=== PATIENT | male | born 1935 | race Caucasian/White ===

== ENCOUNTER 2018-11-30 08:13 | Day surgery (SDC) | payer MEDICARE ==
[~2018-11-30] VITALS: Ht 170.2 cm; Wt 108.0 kg
[~2018-11-30 08:13] MED LIST: AMLO5 PO; ASPI81CH PO; BENADRYL25 MG PO; CILO100 PO; CILO50; CYCL10; DOC250; DULO60 PO; FAMO20; FURO20 PO; Flonase 0.05% N16 GM; GABA300 PO; Hydrocodone-Ap1 EA20; LEVSOD100 PO; MELO7.5 PO; METO50ER PO; METPRE4DP PO; POTA10T PO; Pentoxifylline400 MG; Pepcid20 MG PO; Prednisone20 MG PO; SIMV40 PO; TAMS.4ER PO; TIOT18; ZESTRIL40 MG PO
--- NOTE | 2018-11-30 09:48 | NUR ---
PT WATCHING TV AND CALL LIGHT IN REACH.
--- NOTE | 2018-11-30 10:34 | NUR ---
PT AMBULATES TO RESTROOM AND BACK WITHOUT DIFF. NADN. VSS. WATCHING TV AT THIS TIME. UPDATED ON TREATMENT PLANS
--- NOTE | 2018-11-30 10:59 | NUR ---
ZOEY JONES TO ASSUME CARE WHILE PT IS IN PROCEDURE. PT TO OTHER WOOD PROCESSING MACHINE OPERATOR FOR PERIPHERAL, AMBULATES WITH MINIMAL ASSITANCE.
--- NOTE | 2018-11-30 12:54 | NUR ---
FULL REPORT PROVIDED ZOEY ACEVES TO ASSUME CARE OF PT IN [address] [employer]AL AUTOMATION SPECIALIST.
--- NOTE | 2018-11-30 13:45 | NUR ---
PT ARRIVED TO ICU 14 FROM PRODUCT MANAGEMENT CONSULTANT. R AND L GROIN SITES ARE C/D/I, SOFT WITH NO HEAMTOMA. PT EDUCATED ON ACTIVITY RESTRICTIONS AND PLAN OF CARE. MEDICATION ORDERS FAXED TO PHARMACY. LAB HERE TO DRAW CBC. POSTERIOR TIBIAL PULSES FOUND WITH DOPPLER, UNABLE TO FIND DORSALIS PEDIS PULSE ON R FOOT.
[2018-11-30 14:26] LABS: BASOPHILS ABSOLUTE AUTO 0.05 K/mm3 (0.00-0.23); BASOPHILS PERCENT AUTO 1 % (0-2); EOSINOPHILS ABSOLUTE AUTO 0.38 K/mm3 (0.00-0.68); EOSINOPHILS PERCENT AUTO 6 % (0-6); Hematocrit 40.8 % (37.0-53.0); Hemoglobin 13.1 g/dL (13.5-17.5); IMMATURE GRAN ABSOLUTE AUTO 0.02 K/mm3 (0.00-0.10); IMMATURE GRAN PERCENT AUTO 0 % (0-1); LYMPHOCYTES ABSOLUTE AUTO 1.66 K/mm3 (0.84-5.20); LYMPHOCYTES PERCENT AUTO 25 % (21-46); MONOCYTES PERCENT AUTO 9 % (4-13); Mean Corpuscular HGB 28.9 pg (26.0-34.0); Mean Corpuscular HGB Conc 32.1 g/dL (31.5-36.5); Mean Corpuscular Volume 90 fL (80-100); NEUTROPHILS ABSOLUTE AUTO 3.83 K/mm3 (1.96-9.15); NEUTROPHILS PERCENT AUTO 59 % (41-73); Platelet Count 186 K/mm3 (150-400); RDW Coefficient Variation 14.4 % (11.7-14.2); RDW Standard Deviation 47.3 fL (35.1-46.3); Red Blood Cell Count 4.53 M/mm3 (4.30-5.90); White Blood Cell Count 6.54 K/mm3 (4.00-11.30)
--- NOTE | 2018-11-30 16:20 | NUR ---
PT'S SBP HAS BEEN 170-200S. PT STATES HE TOOK ALL OF HIS MEDICATIONS THIS MORNING EXCEPT HIS PAIN PILLS. DR. BAKER NOTIFIED AND RECEIVED ORDERS TO STOP IV FLUIDS AND TO APPLY NITRO PASTE, SEE ORDERS.
--- NOTE | 2018-11-30 18:38 | NUR ---
SHIFT SUMMARY: PT HAS BEEN HYPERTENSIVE WITH SYSTOLIC BP IN THE 170-200 RANGE. PHYSICIAN NOTIFIED & NITRO GIVEN ORDERED. PT HAS BEEN CALM AND COOPERATIVE THROUGHOUT SHIFT. PT AMBULATES WITH MINOR ASSISTANCE. PT ASKED FOR CPAP HE USES HIS OWN AT HOME EVERY NIGHT TO SLEEP. ORDER PUT IN FOR RESP. PT DID REPORT BACK PAIN AND STATED "HE ALWAYS HAS IT". TYLENOL 3 GIVEN.
--- NOTE | 2018-11-30 19:30 | NUR ---
PATIENT UP AMBULATING IN ROOM WITHOUT DIFFICULTY. PATIENT A&O X3 YET PATIENT SLIGHTLY FORGETFUL, EXPLAINING SEVERAL TIMES TO PATIENT WHY HE WAS IN THE ICU AND BEING CLOSELY MONITORED FOR RISK OF BLEEDING. PATIENT C/O BACK PAIN WHICH HE EXPLAINED IS CHRONIC IN NATURE. RT WILL SET UP CPAP FOR PATIENT FOR TONIGHT. RIGHT GROIN SITE WITH DRESSING CD&I AREA SOFT NO OOZING SEEN. LEFT GROIN SITE WITH DRESSING CD&I AREA SOFT NO OOZING SEEN.
--- NOTE | 2018-12-01 01:12 | NUR ---
PATIENT SLEEPING WITH CPAP IN PLACE RESPIRATIONS EVEN AND UNLABORED, VSS. AWAKENS TO SLIGHT STIMULI. BACK PAIN CONTINUES. BOTH GROIN SITES REMAIN STABLE
[2018-12-01 03:57] LABS: BASOPHILS ABSOLUTE AUTO 0.05 K/mm3 (0.00-0.23); BASOPHILS PERCENT AUTO 1 % (0-2); EOSINOPHILS ABSOLUTE AUTO 0.41 K/mm3 (0.00-0.68); EOSINOPHILS PERCENT AUTO 6 % (0-6); Hematocrit 40.6 % (37.0-53.0); Hemoglobin 13.2 g/dL (13.5-17.5); IMMATURE GRAN ABSOLUTE AUTO 0.02 K/mm3 (0.00-0.10); IMMATURE GRAN PERCENT AUTO 0 % (0-1); LYMPHOCYTES ABSOLUTE AUTO 1.57 K/mm3 (0.84-5.20); LYMPHOCYTES PERCENT AUTO 22 % (21-46); MONOCYTES ABSOLUTE AUTO 0.71 K/mm3 (0.16-1.47); MONOCYTES PERCENT AUTO 10 % (4-13); Mean Corpuscular HGB 29.3 pg (26.0-34.0); Mean Corpuscular HGB Conc 32.5 g/dL (31.5-36.5); Mean Corpuscular Volume 90 fL (80-100); Mean Platelet Volume 9.7 fL (9.1-12.4); NEUTROPHILS ABSOLUTE AUTO 4.34 K/mm3 (1.96-9.15); NEUTROPHILS PERCENT AUTO 61 % (41-73); Platelet Count 171 K/mm3 (150-400); RDW Coefficient Variation 14.1 % (11.7-14.2); RDW Standard Deviation 47.2 fL (35.1-46.3)
--- NOTE | 2018-12-01 06:30 | NUR ---
SUMMARY PATIENT SLEEPING WITH CPAP IN PLACE AWAKENS TO SLIGHT STIMULI. NO COMPLAINTS AT THIS TIME. BOTH GROIN SITES REMAIN STABLE, WITH NO SWELLING OR OOZING SEEN. PATIENT UP AND DOWN IN ROOM WITHOUT DIFFICULTY.
--- NOTE | 2018-12-01 07:39 | NUR ---
ASSUMED CARE @ 0700. PT LYING IN BED WITH CPAP ON. PT MOVES FREELY IN BED. CARDIAC AND RESPIRATORY STATUS WNL. BILATERAL GROIN SITES SOFT, PAINLESS, AND W/O HEMATOMA. PEDAL PULSES W/ DOPPLER. EXTREMITIES COOL. DISCHARGE INSTUCTIONS GIVEN. AWAITING PT RIDE. EXPECTED DISCHARGE @0800. WILL CONTINUE TO MONITOR, CALL LIGHT IN REACH, BED IN LOWEST POSITION.
--- NOTE | 2018-12-01 08:52 | NUR ---
DISCHARGE INSTRUCTIONS PROVIDED TO PT AND FRIEND, VERBALIZED UNDERSTANDING. NO NEW MEDICATIONS ORDERED. PIV DC'D W/CATH INTACT. ESCORTED FROM UNIT VIA W/C, NO S/S OF ACUTE DISTRESS AT THAT TIME.
== END 2018-12-01 08:44 | disposition home or self-care (01) ==
LOC: MHTC 08:13 → ICUW 12:59 → MHTC 12-01 08:44
PROVIDERS: Internal Medicine Interventional Cardiology
DX: I70.201 Unspecified atherosclerosis of native arteries of extremities, right leg (principal); Z88.8 Allergy status to other drugs, medicaments and biological substances; Z91.048 Other nonmedicinal substance allergy status
CPT/HCPCS: 36200; 36415; 75630; 85025; 94660; 99152; 99153; C1769; C1887; C1894; J1644; J2250; J3010; J7030; Q9967

== ENCOUNTER 2018-12-23 08:12 | Day surgery (SDC) | payer MEDICARE ==
[~2018-12-23] VITALS: Ht 172.7 cm; Wt 109.5 kg
[~2018-12-23 08:12] MED LIST changes: +ALBU90OI6 INH; +ALL DAY ALLERGY10 M1 PO; +ASCO500 PO; +Co Q-10100 MG PO; +DOCU100 PO; +FISH OIL 1,0001 EAC1 PO; +Ginkgo Biloba40 M1 PO; +MELA3 PO; +Norco 5-325 Ta1 EACH PO
[2018-12-23 09:43] LABS: BASOPHILS ABSOLUTE AUTO 0.05 K/mm3 (0.00-0.23); BASOPHILS PERCENT AUTO 1 % (0-2); EOSINOPHILS ABSOLUTE AUTO 0.46 K/mm3 (0.00-0.68); EOSINOPHILS PERCENT AUTO 6 % (0-6); Hematocrit 45.6 % (37.0-53.0); Hemoglobin 14.9 g/dL (13.5-17.5); IMMATURE GRAN ABSOLUTE AUTO 0.02 K/mm3 (0.00-0.10); IMMATURE GRAN PERCENT AUTO 0 % (0-1); LYMPHOCYTES ABSOLUTE AUTO 2.05 K/mm3 (0.84-5.20); LYMPHOCYTES PERCENT AUTO 27 % (21-46); MONOCYTES ABSOLUTE AUTO 0.73 K/mm3 (0.16-1.47); MONOCYTES PERCENT AUTO 10 % (4-13); Mean Corpuscular HGB 29.2 pg (26.0-34.0); Mean Corpuscular HGB Conc 32.7 g/dL (31.5-36.5); Mean Corpuscular Volume 89 fL (80-100); Mean Platelet Volume 10.2 fL (9.1-12.4); NEUTROPHILS ABSOLUTE AUTO 4.19 K/mm3 (1.96-9.15); NEUTROPHILS PERCENT AUTO 56 % (41-73); Platelet Count 225 K/mm3 (150-400); RDW Coefficient Variation 14.1 % (11.7-14.2); RDW Standard Deviation 46.3 fL (35.1-46.3)
[2018-12-23 10:02] LABS: Alanine Aminotransfer (ALT/SGP 22 U/L (12-78); Albumin/Globulin Ratio 1.2 (0.8-1.8); Alk Phos 97 U/L (50-136); Anion Gap 7 mmol/L (6-16); Aspartate Aminotrans (AST/SGOT 13 U/L (12-37); Bilirubin, Total 0.6 mg/dL (0.1-1.0); Blood Urea Nitrogen 13 mg/dL (8-24); Bun/Creatinine Ratio 14.3 (12.0-20.0); CO2, Blood 29 mmol/L (21-32); Calcium, Blood 9.2 mg/dL (8.5-10.1); Chloride, Blood 106 mmol/L (98-108); Creatinine, Blood 0.91 mg/dL (0.60-1.20); Globulin, Blood 3.4 g/dL (2.2-4.0); Glomerular Filtration Rate >60 (60-); Glucose, Blood 91 mg/dL (70-99); Sodium, Blood 142 mmol/L (136-145); Total Protein, Blood 7.4 g/dL (6.4-8.2)
--- NOTE | 2018-12-23 16:04 | NUR ---
REMOVED SHEATH @ THIS TIME
--- NOTE | 2018-12-23 16:52 | NUR ---
SHEATH REMOVAL RECAP: [facility] STAFF CAME TO THE UNIT AND PULLED THE SHEATH. TOTAL OF 50MCG OF FENTANYL GIVEN IV PER ORDERS. PT TOLLERATED WELL. PRESSURE WAS HELD FOR APPROX 40 MIN. VSS WHILE HOLDING PRESSURE. UPON COMPLETION. NO SIGNS OF SWELLING OR HEMATOMA NOTED. AREA IS SOFT WITH MINIMAL TENDERNESS. MINIMAL AMOUNT OF BLOOD NOTED ON THE ZIGGY DRESSING MAPPED OUT TO MONITOR IF OOZING/BLEEDING. PT EDUCATED ON REMAINING FLAT FOR 6 HOURS AND TO NOT LIFT HEAD OR FLEX LEGS. CALL LIGHT IN REACH. BED IN REVERSE [place] TO ASSIST WITH COMFORT. WILL CONTINUE TO MONITOR AND REPORT TO ON COMING RN.
--- NOTE | 2018-12-23 17:48 | NUR ---
Initial Visit: Palliative Care Consult for AD/POLST. Received call from Pt's bedside nurse Olesya and she reports Pt would benefit from completing AD/POLST. She reports Pt does not have any family to make decisions for him. Pt is A&Ox4 and states that he lives with a room mate. Engaged in discussion regarding AD/POLST. Discussed the importance of having wishes for medical treatment written down on document in the event that he was in a condition to where he could not speak for himself. Pt is agreeable to complete a POLST. Educated Pt on life sustaining measures including risk factors with V/U made by Pt. Pt chooses DNR and Limited Treatment. He states he does not want to be intubated. Pt requests this RN fill in the POLST and he will sign. Assisted with completing POLST and Pt signs POLST. Pt reports no other concerns. Spoke with bedside nurse Olesya. She is agreeable with having MD sign POLST when rounds are made in the AM. Instructed Olesya to make contact palliative care once signed or to make 2 copies. 1 copy to be faxed to medical records and 1 copy for Pt to carry on his person. Original will go home with Pt and be placed on his refrigerator. No concerns reported at this time. Palliative Care will remain available.
--- NOTE | 2018-12-23 18:03 | NUR ---
SHIFT SUMMARY: NO ACUTE CHANGES SINCE SHEATH HAS BEEN PULLED. VSS HAVE REMAINED STABLE. PT HAS REMAINED IN REVERSE [place], BUT FLAT TO PREVENT FLEXION. NO S/S OF BLEEDING NOTED. SITE REMAINS SOFT WITH MILD TENDERNESS. NO SWELLING OR REDNESS NOTED. CALL LIGHT IN REACH. WILL CONTINUE TO MONITOR AND REPORT TO ON COMING RN.
--- NOTE | 2018-12-23 19:40 | NUR ---
ASSESSMENT/ASSUMED CARE PT AWAKE, WATCHING TV. C/O LOW BACK PAIN 1-08/29. STATES,"IT'S ALRIGHT RIGHT NOW I HAVE PAIN THERE ALL THE TIME FROM OLD INJURIES". PT MOVING ALL EXT. LYING SUPINE FOR GROIN MANAGEMENT. LUNGS CLEAR BUT DECREASE IN THE BASES ON ROOMAIR. RESP EVEN AND NONLABORED. DENIES SOB OR COUGH. RT IN ROOM SETTING UP CPAP FOR THE NIGHT. PT STATES,"I DIDN'T KNOW THAT I SHOULD HAVE BROUGHT MINE". HEART RATE REGULAR, BP STABLE. DENIES CHEST PAIN OR PRESSURE. SKIN WARM AND DRY. 3+ PITTING EDEMA TO LOWER EXT. BT+ ABD SOFT AND NONTENDER. DENIES N/V. IV TO LEFT FOREARM SALINE LOCKED. RIGHT LOWER ABD/GROIN SITE SOFT TO PALPATION, NO HEMATOMA OR BLEEDING NOTED.
--- NOTE | 2018-12-23 21:30 | NUR ---
CPAP/GROIN PT STATES,"I'M READY TO GO TO SLEEP NOW". CPAP APPLIED. RIGHT GROIN/RLQ STABLE SOFT TO PALP, NO HEMATOMA OR BLEEDING. HOB UP 10 DEGREES
--- NOTE | 2018-12-23 23:56 | NUR ---
REASSESSMENT PT SLEEPING WITH CPAP ON. RESP EVEN AND NONLABORED. VSS. RIGHT GROIN/RLQ STABLE. NO HEMATOMA OR BLEEDING NOTED. PT MOVING SELF AROUND IN BED.
--- NOTE | 2018-12-24 02:00 | NUR ---
AMB PT AWAKE. TRIED TO USE URINAL WITHOUT SUCCESS. RIGHT GROIN/RLQ STABLE. PT DANGLED, STOOD AND AMB TO BATHROOM. VOIDED DARK AMMY URINE. BACK TO BED. GROIN UNCHANGED.
--- NOTE | 2018-12-24 05:06 | NUR ---
SHIFT SUMMARY PT RESTING QUIETLY DURING THE NIGHT. USING CALL LIGHT. DENIES PAIN OR DISCOMFORT. RIGHT GROIN/RLQ SOFT TO PALP, NO HEMATOMA OR BLEEDING NOTED. PT UP TO BATHROOM WITH STANDBY ASSSIT. VOIDING AMMY URINE SMALL AMTS. VSS. REPORT TO ON COMING NURSE. POSSIBLE DISCHARGE TO HOME TODAY
--- NOTE | 2018-12-24 07:31 | NUR ---
ASSUMED CARE NOTE REPORT RECEIVED FROM ZOEY ALEXANDER. BEDSIDE ROUNDING DONE. RIGHT GROIN SITE ASSESSED WITH OFFGOING RN, NO CHANGE. SITE SOFT, FREE FROM HEMATOMA OR BRUISING. DR SINGH ROUNDED WHILE THIS RN AND OFFGOING RN PRESENT AT BEDSIDE. DR SINGH UPDATED ON PT STATUS THROUGH THE NIGHT. PLAN FOR PT TO BE D/C HOME THIS MORNING. DISCUSSED POLST WITH DR SINGH, PT TO F/U WITH PCP AND HAVE POLST COMPLETED THERE. PT RESTING IN BED WITH CPAP ON AND EYES CLOSED PRIOR TO RN ENTERING ROOM. PT AWOKE EASILY TO VERBAL STIMULI. PT ALERT AND ORIENTED TO SELF, , PERSON, PLACE, SURROUNDINGS, AND DATE. PT DENIES ANY PAIN OR DISCOMFORT AT THIS TIME. LS CLEAR T/O. PT DENIES SOB/DYSPNEA. BREATHING E/U ON CPAP. RHYTHM SHOWING NORMAL SINUS. BP STABLE, HR IN 80S. PT DENIES CHEST PAIN/PRESSURE/PALPITATIONS. AFEBRILE. SEE FLOWSHEET FOR VS. ABD NORMAL PER PT, FIRM, TENDER TO PALPATION IN RLQ. BT X4, NORMOACTIVE. URINAL AT BEDSIDE. PT DENIES NAUSEA. SKIN C/D/I. EDEMA TO BLE, +1 PITTING. PT DENIES NUMBNESS/TINGLING TO EXTREMITIES. 20G PIV TO LFA, FLUSHES EASILYS, SALINE LOCKED. PT REPOSITIONS SELF IN BED, CALL LIGHT IN REACH. BED IN LOWEST POSITION. WILL CONT TO MONITOR PT.
[2018-12-24] MEDS ORDERED: CLOP75 PO (08:42)
--- NOTE | 2018-12-24 08:49 | NUR ---
UPDATE PT NOTIFIED THAT D/C PAPERWORK STARTED. INSTRUCTED PT TO CALL FOR HIS FRIEND TO PICK-UP.
--- NOTE | 2018-12-24 09:26 | NUR ---
D/C NOTE PT D/C HOME WITH FRIEND DRIVING. D/C PAPERWORK REVIEWED WITH PT, PT VERBALIZED UNDERSTANDING. PT INSTRUCTED TO SCHEDULE F/U APPOINTMENTS WITH PCP AND YOUTH NUTRITIONAL MONITOR, PT VERBALIZED UNDERSTANDING. PT INSTRUCTED TO FINGERPRINT TECHNICIAN PRESCRIPTION FOR PLAVIX SUPRIYA, CALLED IN TO PT'S PREFERRED PHARMACY OF [facility] IN [place]. ALL BELONGINGS WITH PT AT TIME OF D/C. NO S/SX DISTRESS NOTED AT TIME OF D/C. PT ESCORTED TO HOSPITAL FRONT ENTRANCE WHERE HE REQUESTED TO WAIT FOR HIS FRIEND.
== END 2018-12-24 09:32 | disposition home or self-care (01) ==
LOC: MHTC 08:12 → ICUW 11:30 → MHTC 12-24 09:32
PROVIDERS: Radiology Diagnostic Radiology
DX: I70.203 Unspecified atherosclerosis of native arteries of extremities, bilateral legs (principal); Z88.8 Allergy status to other drugs, medicaments and biological substances; Z88.1 Allergy status to other antibiotic agents; Z79.899 Other long term (current) drug therapy; Z79.01 Long term (current) use of anticoagulants
CPT/HCPCS: 80053; 85025; 85347; 85730; 99152; 99153; C1725; C1769; C1876; C1887; C1894; C2623; J1644; J2250; J3010; J7030; Q9967